=== PATIENT | male | born 1950 | race African-American/Black ===

== ENCOUNTER 2018-11-03 11:46 | Day surgery (SDC) | payer MEDICARE, OTHER ==
[2018-11-02 12:10] VITALS: BMI 23.3
--- NOTE | 2018-11-03 14:11 | HP ---
History & Physical Update - History History: No Change - Physical Physical: No Change - Assessment Assessment: No Change - Plan Plan: No Change
--- NOTE | 2018-11-03 14:12 | OP ---
Operative Note - Note: Operative Date: 11/03/18 Pre-Operative Diagnosis: prostate cancer Operation: prostate cryoablation and cystoscopy Post-Operative Diagnosis: Same as Pre-op Anesthesiologist/[employer]: Wolf Laurent Anesthesia: General Estimated Blood Loss (mls): 0 Drains & Tubes with Location: 18 fr pizano Operative Report Dictated: Yes
[2018-11-03] MEDS ORDERED: PROPOFOL 20 ML ONE (15:19)
[2018-11-03] MEDS ORDERED: LIDOCAINE HCL/PF 2% SDV 5ML VIAL ONE (15:20)
[2018-11-03] MEDS ORDERED: MIDAZOLAM HCL 2 MG/2 ML SINGLE DOSE VIAL ONE (15:20)
[2018-11-03] MEDS ORDERED: ceFAZolin SODIUM 1 GM VIAL IVPB ONE (15:34)
[2018-11-03] MEDS ORDERED: ceFAZolin SODIUM 1 GM VIAL ONE (15:36)
[2018-11-03] MEDS ORDERED: oxyCODONE HCL 5 MG TABLET PO PRN (16:09)
[2018-11-03] MEDS ORDERED: ONDANSETRON 4 MG/2 ML VIAL IVPUSH PRN (16:09)
[2018-11-03] MEDS ORDERED: LACTATED RINGERS SOLUTION 1,000 ML IV SCH (16:15)
[2018-11-03 18:43] VITALS: TEMP 97.5
[2018-11-03 19:29] VITALS: BP 139/64
[2018-11-03 19:31] VITALS: PULSE 52
--- NOTE | 2018-11-04 10:53 | OP ---
DATE OF OPERATION: 11/03/2018 PREOPERATIVE DIAGNOSIS: Prostate cancer. POSTOPERATIVE DIAGNOSIS: Prostate cancer. PROCEDURE: Prostate cryoablation and cystoscopy. SURGEON: Hima Villanueva MD SLUDGE FILTRATION ATTENDANT: None. ANESTHESIA: General via laryngeal mask. ANESTHESIOLOGIST: SPECIMENS: None. CULTURES: None. DRAINS: An 18-Maldivian Almeida catheter. ESTIMATED BLOOD LOSS: None. COMPLICATIONS: None. DESCRIPTION OF PROCEDURE: The patient was brought to the operating room, placed on the operating room table in a supine position. After administration of general anesthesia via laryngeal mask, intravenous antibiotics were administered. Sequential compression devices were placed. Patient was placed in the dorsal lithotomy position. Perineum was shaved first and perineum and genitals were prepped and draped in the usual sterile manner. An 18-Maldivian Almeida catheter was placed per urethra, 10 mL placed in the balloon, and then the bladder was filled with 350 mL of sterile normal saline and clamped. A transrectal ultrasound probe was placed. Ioban was placed. Transrectal ultrasound was done. Plan was made for the cryoablation. Six cryoablation probes were placed in the appropriate locations as per the plan as were the temperature sensors for external sphincter and Denonvilliers' fascia. At this point, measurements were taken, and the cryoablation probes were set to the appropriate length. Now cystoscopy was performed after removing Almeida catheter, which demonstrated normal anterior urethra with normal prostatic urethra. No probes penetrated the prostatic urethra nor the bladder. The bladder was thoroughly inspected. There were no foreign bodies, tumors, stones, inflammation. Both ureteral orifices were in their usual location with clear efflux bilaterally. The scope was retroflexed. Bladder neck was free of perforation. Super Stiff guidewire was inserted through the cystoscope and the left in the bladder. The cystoscope was removed, and urethra warmer was inserted over the guidewire, and urethral warming was started. The cryoablation was now done with 2 freeze/thaw cycles. At the end of the procedure, cryoablation probes were removed, and the urethra warmer was left in place an additional 5 minutes. An 18-Maldivian Almeida catheter was placed. Sterile compressive dressing on the perineum was placed with bacitracin, 4 x 4, and Tegaderm. He tolerated the procedure well and awoken from anesthesia in the operating room. The 18-Maldivian Almeida catheter was replaced. Transferred to the recovery in stable condition. Gwendolyn [id number]
== END 2018-11-03 19:40 | disposition home or self-care (01) ==
LOC: JASU-SURG 11:46
PROVIDERS: ATTEND Urology
PROC: 0V503ZZ Destruction of Prostate, Percutaneous Approach (ICD-10-PCS; principal; 2018-11-03 13:30)
PROC: 0TJB8ZZ Inspection of Bladder, Via Natural or Artificial Opening Endoscopic (ICD-10-PCS; 2018-11-03 13:30)
DX: C61 Malignant neoplasm of prostate (principal); I10 Essential (primary) hypertension; E11.9 Type 2 diabetes mellitus without complications; I48.91 Unspecified atrial fibrillation; Z79.01 Long term (current) use of anticoagulants; Z79.84 Long term (current) use of oral hypoglycemic drugs; Z86.73 Personal history of transient ischemic attack (TIA), and cerebral infarction without residual deficits
CPT/HCPCS: 55873; C2618; 82962; 94760

== ENCOUNTER 2021-02-20 04:35 | Day surgery (SDC) | payer MEDICARE, OTHER ==
[2021-02-19 09:02] VITALS: BMI 24.1
[2021-02-20] MEDS ORDERED: PROPOFOL 20 ML ONE ×2 (11:56)
[2021-02-20] MEDS ORDERED: MIDAZOLAM HCL 2 MG/2 ML SINGLE DOSE VIAL ONE (11:56)
[2021-02-20] MEDS ORDERED: DEXAMETHASONE SOD PHOSPHATE 4 MG/1 ML VIAL ONE (12:12)
[2021-02-20] MEDS ORDERED: ceFAZolin SODIUM 1 GM VIAL ONE (12:17)
[2021-02-20] MEDS ORDERED: ceFAZolin SODIUM 1 GM VIAL IVPB ONE (12:19)
[2021-02-20] MEDS ORDERED: ONDANSETRON 4 MG/2 ML VIAL IVPUSH PRN (12:24)
[2021-02-20] MEDS ORDERED: oxyCODONE HCL 5 MG TABLET PO PRN (12:24)
[2021-02-20] MEDS ORDERED: LACTATED RINGERS SOLUTION 1,000 ML IV SCH (12:30)
[2021-02-20] MEDS ORDERED: BACITRACIN 15 GM TUBE TOPICAL OINTMENT TP ONE (13:20)
[2021-02-20 16:01] VITALS: BP 138/63; PULSE 71; TEMP 97
== END 2021-02-20 16:25 | disposition home or self-care (01) ==
LOC: JASU-SURG 04:35
PROVIDERS: ATTEND Urology
PROC: 0V503ZZ Destruction of Prostate, Percutaneous Approach (ICD-10-PCS; principal; 2021-02-20 12:00)
DX: C61 Malignant neoplasm of prostate (principal); E11.9 Type 2 diabetes mellitus without complications; Z79.84 Long term (current) use of oral hypoglycemic drugs
CPT/HCPCS: 55873; C2618; 82962; 94760